=== PATIENT | female | born 1965 | race Caucasian/White ===

== ENCOUNTER → 2017-08-03 | Outpatient (CLI) | payer MEDICAID | END | disposition home or self-care (01) | LOC: CFH 09:45 | PROVIDERS: ATTEND Obstetrics & Gynecology | DX: Z12.31 Encounter for screening mammogram for malignant neoplasm of breast (principal) | CPT/HCPCS: 77063; G0202 ==

== ENCOUNTER 2019-10-22 05:31 | Emergency (ER) | payer MEDICAID, OTHER ==
[~2019-10-22] VITALS: Ht 165.1 cm; Wt 57.0 kg
[2019-10-22] MEDS ORDERED: METHOCARBAMOL 750 MG TABLET ONE (05:58)
[2019-10-22] MEDS ORDERED: KETOROLAC 30 MG/1 ML ONE (05:59)
[2019-10-22] MEDS ORDERED: METHOCARBAMOL 750 MG TABLET PO ONE (06:00)
[2019-10-22] MEDS ORDERED: KETOROLAC 30 MG/1 ML IM ONE (06:00)
--- NOTE | 2019-10-22 06:10 | NUR ---
Patient presents to ER c/o pain in her left buttock into left leg. Patient states she didn't know if she should stretch and work through the pain. Patient is in NAD. Respirations even and unlabored.
--- NOTE | 2019-10-22 06:50 | NUR ---
Report given to VY Celestin.
--- NOTE | 2019-10-22 06:50 | NUR ---
RECEIVED REPORT FROM [facility]. PT UPRIGHT ON GURNEY WITH EYES CLOSED, RESPONDS APPROP TO STAFF, NAD & MORE COMFORTABLE, "MADE ME LOOPY", ADVISED PT OF SAFE RIDE HOME (VIA FRIEND, BUS OR TAXI)- PT VERBALIZED UNDERSTANDING, COMFORT MEASURES PROVIDED, CALL LIGHT WITHIN REACH.
[2019-10-22 07:49] VITALS: BP 103/67
--- NOTE | 2019-10-22 08:06 | NUR ---
Patient given discharge instructions and Rx, they have confirmed that they understand the instructions and will take a taxi home. Patient ambulatory with steady gait.
== END 2019-10-22 08:07 | disposition home or self-care (01) ==
LOC: ED 07:55
DX: M54.16 Radiculopathy, lumbar region (principal)
CPT/HCPCS: 72110; 96372; 99283; J1885